=== PATIENT | female | born 1985 | race Caucasian/White ===

== ENCOUNTER 2019-10-22 12:52 | Emergency (ER) | payer MEDICAID ==
[~2019-10-22] VITALS: Ht 170.2 cm; Wt 65.8 kg
[2019-10-22 13:30] VITALS: BP_SYST 124
[2019-10-22 13:33] VITALS: BP_SYST 124
--- NOTE | 2019-10-22 13:33 | NUR ---
Patient fabi, states she has to goto work.
--- NOTE | 2019-10-22 13:33 | NUR ---
Patient triaged and placed in waiting room. VSS and patient appears in no acute distress at this time. Accompanied by father, awaiting available bed, and MD notified of need for MSE.
== END 2019-10-22 13:33 | disposition left against medical advice (07) ==
LOC: SED 12:52
DX: Z76.0 Encounter for issue of repeat prescription (principal); Z53.21 Procedure and treatment not carried out due to patient leaving prior to being seen by health care provider

== ENCOUNTER 2021-01-29 16:02 | Observation (INO) | payer MEDICAID ==
[~2021-01-29] VITALS: Ht 170.2 cm; Wt 68.0 kg
[2021-01-29 16:44] LABS: BILIRUBIN,URINE NEGATIVE (NEGATIVE); BLOOD, URINE NEGATIVE (NEGATIVE); CLARITY/URINE CLEAR (CLEAR); COLOR,URINE YELLOW (YELLOW); GLUCOSE,URINE NEGATIVE (NEGATIVE); KETONES,URINE NEGATIVE (NEGATIVE); LEUKOCYTE ESTERASE ,URINE NEGATIVE (NEGATIVE); NITRITE, URINE NEGATIVE (NEGATIVE); PROTEIN URINE NEGATIVE (NEGATIVE); UROBILINOGEN,URINE 0.2 (0.2-1.0)
[2021-01-29 16:56] LABS: BARBITURATE, URINE NEGATIVE (NEG <=200)
[2021-01-29 16:57] LABS: BENZODIAZEPINE, URINE NEGATIVE (NEG <=150); CANNABINOID, URINE POSITIVE (NEG <=50); COCAINE, URINE NEGATIVE (NEG <=150); METHAMPHETAMINES SCREEN,URINE POSITIVE (NEG <=500); URINE METHADONE NEGATIVE (NEG <=200)
[2021-01-29 16:58] LABS: OPIATE, URINE POSITIVE (NEG <=100); PHENCYCLIDINE SCREEN,URINE NEGATIVE (NEG <=25); UR TRICYCLIC ANTIDEPRESSANTS NEGATIVE (NEG <=300); URINE OXYCODONE SCREEN NEGATIVE (NEG <=100); URINE PROPOXYPHENE SCREEN NEGATIVE (NEG <=300)
[2021-01-29 16:59] LABS: URINE AMPHETAMINE NEGATIVE (NEG <=500)
== END 2021-01-29 16:20 | disposition home or self-care (01) ==
LOC: SPU 16:02
PROVIDERS: ADMIT Obstetrics & Gynecology; ATTEND Obstetrics & Gynecology
DX: Z34.82 Encounter for supervision of other normal pregnancy, second trimester (principal); Z3A.21 21 weeks gestation of pregnancy; Z79.899 Other long term (current) drug therapy
CPT/HCPCS: 80307; 81003; G0378

== ENCOUNTER 2021-05-25 08:05 | Inpatient (IN) | payer MEDICAID, SELFPAY ==
[~2021-05-25] VITALS: Ht 170.2 cm; Wt 77.1 kg
[2021-05-25] MEDS ORDERED: CEFAZOLIN 2 GM IVPB PREMIX 50 ML IV ONE (08:30)
[2021-05-25] MEDS ORDERED: LR 1,000 ML IV ONE (08:30)
[2021-05-25] MEDS ORDERED: ONDANSETRON HCL 4 MG/2 ML VIAL ONE (08:43)
[2021-05-25 09:01] LABS: BILIRUBIN,URINE NEGATIVE (NEGATIVE); BLOOD, URINE 2+ (NEGATIVE); CLARITY/URINE CLOUDY (CLEAR); COLOR,URINE YELLOW (YELLOW); GLUCOSE,URINE TRACE (NEGATIVE); KETONES,URINE NEGATIVE (NEGATIVE); LEUKOCYTE ESTERASE ,URINE NEGATIVE (NEGATIVE); NITRITE, URINE NEGATIVE (NEGATIVE); PROTEIN URINE 3+ (NEGATIVE); UROBILINOGEN,URINE 0.2 (0.2-1.0)
[2021-05-25 09:04] LABS: BASOPHILS # (AUTO) 0.1 K/uL (0.0-0.2); BASOPHILS % (AUTO) 0.4 % (0.0-2.0); EOSINOPHILS % (AUTO) 0.2 % (0.0-4.0); HEMATOCRIT 36.1 % (36-48); HEMOGLOBIN 12.2 g/dL (12.0-16.0); LYMPHOCYTES # (AUTO) 1.5 K/uL (1.0-5.5); LYMPHOCYTES % (AUTO) 11.6 % (20.5-51.5); MEAN CORPUSCULAR HEMOGLOBIN 28 pg (27-31); MEAN CORPUSCULAR HGB CONC 34 % (32-36); MEAN CORPUSCULAR VOLUME 84 fL (79.0-98.0); MONOCYTES # (AUTO) 0.5 K/uL (0.0-1.0); MONOCYTES % (AUTO) 4.1 % (1.7-9.3); NEUTROPHILS # (AUTO) 11.1 K/uL (1.8-7.7); NEUTROPHILS % (AUTO) 83.7 % (40.0-70.0); PLATELET COUNT (AUTO) 218 K/uL (130-430); RED CELL DISTRIBUTION WIDTH 13.3 % (9.0-15.0); WHITE BLOOD COUNT (AUTO) 13.3 K/uL (4.8-10.8)
[2021-05-25 09:12] LABS: BARBITURATE, URINE NEGATIVE (NEG <=200); BENZODIAZEPINE, URINE NEGATIVE (NEG <=150); CANNABINOID, URINE NEGATIVE (NEG <=50); COCAINE, URINE NEGATIVE (NEG <=150); METHAMPHETAMINES SCREEN,URINE NEGATIVE (NEG <=500); OPIATE, URINE NEGATIVE (NEG <=100); PHENCYCLIDINE SCREEN,URINE NEGATIVE (NEG <=25); UR TRICYCLIC ANTIDEPRESSANTS NEGATIVE (NEG <=300); URINE AMPHETAMINE NEGATIVE (NEG <=500); URINE METHADONE NEGATIVE (NEG <=200); URINE OXYCODONE SCREEN NEGATIVE (NEG <=100); URINE PROPOXYPHENE SCREEN NEGATIVE (NEG <=300)
[2021-05-25] MEDS ORDERED: AMPICILLIN SODIUM 2 GM VIAL ONE (09:29)
[2021-05-25] MEDS ORDERED: AMPICILLIN SODIUM 2 GM in NS 100 ML IV ONE (09:30)
[2021-05-25 09:35] LABS: BACTERIA,URINE FEW /HPF (None Seen); RBC,URINE 20-50 /HPF (0-3); WBC,URINE 0-3 /HPF (0-3)
[2021-05-25] MEDS ORDERED: NS IRRIG SOLN 1000 ML IR ONE (09:55)
[2021-05-25] MEDS ORDERED: MORPHINE SULFATE 10MG/10ML PF AMP EP ONE (09:55)
[2021-05-25] MEDS ORDERED: LR 1,000 ML IV.SOLN IV ONE (09:55)
[2021-05-25] MEDS ORDERED: BUPIVACAINE /PF 0.75% 10 ML VIAL INJ ONE (09:55)
[2021-05-25] MEDS ORDERED: LANOLIN 7 GM OINT. TP PRN (10:00)
[2021-05-25] MEDS ORDERED: SIMETHICONE 80 MG TAB.CHEW PO PRN (10:00)
[2021-05-25] MEDS ORDERED: DIPH-TET-PERTUS Vaccine 0.5 ML VIAL (ADACEL) I.M. PRN (10:00)
[2021-05-25] MEDS ORDERED: ANUSOL 1 EA SUPP.RECT (PREPARATION H) RC PRN (10:00)
[2021-05-25] MEDS ORDERED: BISACODYL 10 MG/SUPPOSITORY RC PRN (10:00)
[2021-05-25] MEDS ORDERED: MEASLES,MUMPS&RUBELLA VACC/PF 12500 UNIT/0.5 ML VIAL SUBQ PRN (10:00)
[2021-05-25] MEDS ORDERED: LR 1,000 ML IV SCH (10:00)
[2021-05-25] MEDS ORDERED: OXYTOCIN/0.9 % SODIUM CHLORIDE 1,000 ML IV ONE (10:00)
[2021-05-25] MEDS ORDERED: OXYCODONE/ACETAMINOPHEN 5-325 TABLET PO PRN (10:00)
[2021-05-25] MEDS ORDERED: KETOROLAC TROMETHAMINE 30 MG VIAL IVP PRN (10:00)
[2021-05-25] MEDS ORDERED: ONDANSETRON HCL 4 MG/2 ML VIAL IVP PRN ×2 (10:45)
[2021-05-25] MEDS ORDERED: METOCLOPRAMIDE HCL 10 MG/2 ML VIAL IVP PRN (10:45)
[2021-05-25] MEDS ORDERED: fentaNYL CITRATE/PF 100 MCG/2 ML AMP IVP PRN ×2 (10:45)
[2021-05-25] MEDS ORDERED: KETOROLAC TROMETHAMINE 60 MG/2 ML VIAL IM PRN (10:45)
[2021-05-25] MEDS ORDERED: DIPHENHYDRAMINE INJ 50 MG/ML VIAL IVP PRN (10:45)
[2021-05-25] MEDS ORDERED: NALOXONE HCL 0.4 MG/ML AMP (NARCAN) IVP PRN ×2 (10:45)
[2021-05-25] MEDS ORDERED: MORPHINE SULFATE 10MG/10ML PF AMP SP SCH (10:45)
[2021-05-25] MEDS ORDERED: NALBUPHINE HCL 10 MG/ML AMP IVP PRN (10:45)
[2021-05-25] MEDS ORDERED: OXYTOCIN 10 UNIT/ML VIAL ONE (10:52)
[2021-05-25 11:17] VITALS: BP_SYST 122
[2021-05-25] MEDS: IBUPROFEN 800 MG TABLET PO PRN (17:46)
[2021-05-25] MEDS: DOCUSATE SODIUM 100 MG CAPSULE PO SCH (20:59)
[2021-05-25] MEDS ORDERED: SENNOSIDES/DOCUSATE SODIUM 1 TAB TABLET(SENOKOT-S) PO SCH (21:00)
[2021-05-25] MEDS ORDERED: TEMAZEPAM 15 MG CAPSULE PO PRN (21:00)
[2021-05-26] MEDS: OXYCODONE/ACETAMINOPHEN 5-325 TABLET PO PRN ×3 (06:53→17:45)
[2021-05-26 08:16] LABS: BASOPHILS % (AUTO) 0.4 % (0.0-2.0); EOSINOPHILS # (AUTO) 0.3 K/uL (0.0-0.4); EOSINOPHILS % (AUTO) 3.1 % (0.0-4.0); HEMATOCRIT 31.7 % (36-48); HEMOGLOBIN 10.7 g/dL (12.0-16.0); LYMPHOCYTES # (AUTO) 2.4 K/uL (1.0-5.5); LYMPHOCYTES % (AUTO) 23.3 % (20.5-51.5); MEAN CORPUSCULAR HEMOGLOBIN 29 pg (27-31); MEAN CORPUSCULAR HGB CONC 34 % (32-36); MEAN CORPUSCULAR VOLUME 85 fL (79.0-98.0); MONOCYTES # (AUTO) 0.7 K/uL (0.0-1.0); MONOCYTES % (AUTO) 7.1 % (1.7-9.3); NEUTROPHILS # (AUTO) 6.8 K/uL (1.8-7.7); NEUTROPHILS % (AUTO) 66.1 % (40.0-70.0); PLATELET COUNT (AUTO) 182 K/uL (130-430); RED BLOOD CELL COUNT(AUTO) 3.72 MIL/uL (4.2-6.2); RED CELL DISTRIBUTION WIDTH 13.5 % (9.0-15.0); WHITE BLOOD COUNT (AUTO) 10.3 K/uL (4.8-10.8)
[2021-05-26] MEDS: IBUPROFEN 800 MG TABLET PO PRN (20:45)
[2021-05-26] MEDS: DOCUSATE SODIUM 100 MG CAPSULE PO SCH (20:52)
[2021-05-27] MEDS: OXYCODONE/ACETAMINOPHEN 5-325 TABLET PO PRN ×3 (00:04→12:09)
[2021-05-27] MEDS: IBUPROFEN 800 MG TABLET PO PRN (06:04)
== END 2021-05-27 14:30 | disposition home or self-care (01) | DRG 540 ==
LOC: OBSVTOIN 08:05 → SPU 08:05
PROVIDERS: ADMIT Obstetrics & Gynecology; ATTEND Obstetrics & Gynecology
PROC: 10D00Z1 Extraction of Products of Conception, Low, Open Approach (ICD-10-PCS; principal; 2021-05-25 10:00)
DX: O34.211 Maternal care for low transverse scar from previous cesarean delivery (principal); Z20.822 Contact with and (suspected) exposure to COVID-19; Z37.0 Single live birth; Z3A.37 37 weeks gestation of pregnancy
CPT/HCPCS: 36415; 80307; 81000; 85025; 86592; 86762; 86780; 86886; 86900; 86901; 87340; 87536; 88307; 90715; J0290; J0690; J1885; J2274; J2405; J2590; J3490; J7120

== ENCOUNTER 2022-10-14 15:47 | Emergency (ER) | payer MEDICAID ==
[~2022-10-14] VITALS: Ht 170.2 cm; Wt 70.3 kg
[2022-10-14 15:50] VITALS: BP_SYST 121
--- NOTE | 2022-10-14 16:00 | NUR ---
Patient triaged and placed in waiting room. VSS and patient appears in no acute distress at this time. Accompanied by FAMILY, awaiting available bed, and MD notified of need for MSE.
--- NOTE | 2022-10-14 16:05 | NUR ---
PT STATES THAT SHE WOULD LIKE TO GO TO [place] AND SHE IS [employer]OX 36 [address] , ONLY PLACE THAT WILL TAKE HER IS [facility]. PAPERWORK IS TO BE FAXED TO OUR FACILITY, FAX NUMBER [id number]
--- NOTE | 2022-10-14 16:19 | NUR ---
DR CRUZ OUT TO TRIAGE ROOM FOR EVALUATION
--- NOTE | 2022-10-14 18:11 | NUR ---
Patient given written and verbal discharge instructions and verbalizes understanding. ER MD discussed with patient the results and treatment provided. Patient in stable condition. ID arm band removed. Pt referred to [facility]. Opportunity for questions provided and answered. Medication side effect fact sheet provided.
[2022-10-14 18:13] VITALS: BP_SYST 121
== END 2022-10-14 18:13 | disposition home or self-care (01) ==
LOC: SED 15:47
DX: O99.313 Alcohol use complicating pregnancy, third trimester (principal); Z3A.28 28 weeks gestation of pregnancy; F10.20 Alcohol dependence, uncomplicated; Z79.899 Other long term (current) drug therapy; Y90.6 Blood alcohol level of 120-199 mg/100 ml
CPT/HCPCS: 99284